=== PATIENT | female | born 2000 | race Caucasian/White ===

== ENCOUNTER 2023-10-13 18:59 | Emergency (ER) | payer SELFPAY ==
[~2023-10-13] VITALS: Ht 152.4 cm; Wt 50.0 kg
[2023-10-13 19:16] VITALS: TEMP 98; O2SAT 100
[2023-10-13] MEDS ORDERED: ERYT1OIN6 LEFTEYE (23:10)
[2023-10-13 23:28] VITALS: BP 129/81; PULSE 73; RESP 14; O2SAT 98
== END 2023-10-13 23:30 | disposition home or self-care (01) ==
LOC: ER 18:59
DX: H10.212 Acute toxic conjunctivitis, left eye (principal); Z98.890 Other specified postprocedural states
CPT/HCPCS: 99283